=== PATIENT | male | born 1990 | race Caucasian/White ===

== ENCOUNTER 2018-07-08 21:46 | Emergency (ER) | payer OTHER ==
[~2018-07-08] VITALS: Ht 167.6 cm; Wt 89.8 kg
--- NOTE | 2018-07-08 22:40 | NUR ---
Patient to ER bed 3 to gown for evaluation. Side rails up.
[2018-07-08 22:44] VITALS: BP_SYST 151
--- NOTE | 2018-07-08 22:45 | NUR ---
Patient ambulatory to ED a/o x 4 with c/o LLQ ABD pain x 2 hours. Reports sharp 9/10 pain which radiates to back. ABD non-distended; non-tender. Denies change in urology. -N/V/D. Did not medicate at home. Denies recent trauma or injury. Afebrile
--- NOTE | 2018-07-08 22:59 | NUR ---
ED MD Acosta at bedside for medical evaluation.
[2018-07-08] MEDS ORDERED: KETOROLAC TROMETHAMINE 60 MG/2 ML VIAL IM ONE (23:00)
[2018-07-08 23:55] LABS: BILIRUBIN,URINE NEGATIVE (NEGATIVE); BLOOD, URINE 3+ (NEGATIVE); CLARITY/URINE CLEAR (CLEAR); COLOR,URINE YELLOW (YELLOW); GLUCOSE,URINE NEGATIVE (NEGATIVE); KETONES,URINE TRACE (NEGATIVE); LEUKOCYTE ESTERASE ,URINE NEGATIVE (NEGATIVE); NITRITE, URINE NEGATIVE (NEGATIVE); PH,URINE 5.5 (5.0-8.0); PROTEIN URINE TRACE (NEGATIVE); UROBILINOGEN,URINE 0.2 (0.2-1.0)
[2018-07-08 23:57] LABS: BACTERIA,URINE FEW /HPF (None Seen); RBC,URINE 20-50 /HPF (0-3); WBC,URINE 0-3 /HPF (0-3)
[2018-07-08 23:58] LABS: MUCUS,URINE 1+ /LPF (None Seen)
[2018-07-08] MEDS ORDERED: NACL 0.9% 1,000 ML IV ONE (23:58)
--- NOTE | 2018-07-09 00:06 | NUR ---
#20 gauge angiocath placed to RAC. Use of asceptic technique. Opsite placed over site. Blood return noted. Blood for lab drawn from site. Flushed with 10 cc of normal saline. No evidence of infiltration noted. Patient tolerated well.
[2018-07-09 00:14] LABS: BASOPHILS # (AUTO) 0.1 K/uL (0.0-0.2); BASOPHILS % (AUTO) 0.5 % (0.0-2.0); EOSINOPHILS % (AUTO) 0.2 % (0.0-4.0); HEMATOCRIT 43.9 % (36-54); HEMOGLOBIN 14.3 g/dL (14.0-18.0); LYMPHOCYTES # (AUTO) 1.5 K/uL (1.0-5.5); LYMPHOCYTES % (AUTO) 10.8 % (20.5-51.5); MEAN CORPUSCULAR HEMOGLOBIN 28 pg (27-31); MEAN CORPUSCULAR HGB CONC 33 % (32-36); MEAN CORPUSCULAR VOLUME 86 fL (79.0-98.0); MONOCYTES # (AUTO) 0.5 K/uL (0.0-1.0); MONOCYTES % (AUTO) 3.9 % (1.7-9.3); NEUTROPHILS # (AUTO) 11.4 K/uL (1.8-7.7); NEUTROPHILS % (AUTO) 84.6 % (40.0-70.0); PLATELET COUNT (AUTO) 267 K/uL (130-430); RED BLOOD CELL COUNT(AUTO) 5.11 MIL/uL (4.2-6.2); WHITE BLOOD COUNT (AUTO) 13.5 K/uL (4.8-10.8)
[2018-07-09 00:32] LABS: CALCIUM 9.3 mg/dL (8.4-11.0); CREATININE 1.03 mg/dL (0.55-1.30); POTASSIUM 3.8 mmol/L (3.5-5.1)
[2018-07-09 00:38] LABS: ALBUMIN 3.9 g/dL (3.4-4.8); TOTAL BILIRUBIN 0.6 mg/dL (0.0-1.0)
--- NOTE | 2018-07-09 01:00 | NUR ---
ED MD Acosta at bedside reassessing patient.
[2018-07-09 01:19] VITALS: BP_SYST 144
--- NOTE | 2018-07-09 01:19 | NUR ---
Patient given written and verbal discharge instructions and verbalizes understanding. ER MD discussed with patient the results and treatment provided. Patient in stable condition. ID arm band removed. IV catheter removed intact and dressing applied, no active bleeding. Rx of Flomax, Motrin and Carson given. Patient educated on pain management and to follow up with PMD. Pain Scale 3/10 tolerable for patient. Opportunity for questions provided and answered. Medication side effect fact sheet provided.
== END 2018-07-09 01:19 | disposition home or self-care (01) ==
LOC: SED 21:46
DX: N20.0 Calculus of kidney (principal); Z88.2 Allergy status to sulfonamides
CPT/HCPCS: 36415; 74176; 80053; 81000; 83690; 85025; 96360; 96372; 99285; J1885; J7030

== ENCOUNTER 2021-09-23 19:35 | Emergency (ER) | payer OTHER ==
[~2021-09-23] VITALS: Ht 167.6 cm; Wt 79.4 kg
[2021-09-23 19:47] VITALS: BP_SYST 151
--- NOTE | 2021-09-23 19:47 | NUR ---
Patient to ER bed [address] to [facility] for evaluation. Side rails up. Report given to JUAN LANZA.
--- NOTE | 2021-09-23 20:00 | NUR ---
ER at bedside examining patient.
[2021-09-23] MEDS ORDERED: IBUP-1969 PO (20:02)
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
--- NOTE | 2021-09-23 20:18 | NUR ---
Patient given written and verbal discharge instructions and verbalizes understanding. DR. CAREN TOURE MD discussed with patient the results and treatment provided. Patient in stable condition. ID arm band removed. Rx of IBURPOFEN given. Patient educated on pain management and to follow up with PMD. Pain Scale 0/10. Opportunity for questions provided and answered. Medication side effect fact sheet provided.
== END 2021-09-23 20:18 | disposition home or self-care (01) ==
LOC: SED 19:35
DX: S39.012A Strain of muscle, fascia and tendon of lower back, initial encounter (principal); Z88.2 Allergy status to sulfonamides; Z79.899 Other long term (current) drug therapy; V49.49XA Driver injured in collision with other motor vehicles in traffic accident, initial encounter; Y93.89 Activity, other specified; Y92.89 Other specified places as the place of occurrence of the external cause; Y99.8 Other external cause status
CPT/HCPCS: 99282